=== PATIENT | female | born 1990 | race Two or more races ===

== ENCOUNTER 2018-09-26 11:05 | Emergency (ER) | payer OTHER ==
[2018-09-26] MEDS ORDERED: TETRACAINE HCL 0.5% OPH SOLN 4 ML OD ONE (14:16)
--- NOTE | 2018-09-26 15:18 | ER Document Report ---
HPI - HPI Patient complains to provider of: right eye FB sensation Time Seen by Provider: 09/26/18 14:16 Pain Level: 3 Context: Patient is a 28-year-old female presents to the emergency department with a foreign body sensation of her right eye. Patient states she has had it for about 1.5 weeks. [facility] her she had to come to the emergency room because they were unable to assess her right eye. Patient denies any eye discharge. Patient denies any injury or reason to have a foreign body in her right eye. Patient denies wearing glasses or contact lenses. Patient cannot recall the last time she was at the eye doctor. Past medical history: Asthma Medications: Albuterol Allergies: None - EENT EENT: REPORTS: Eye problems Past Medical History - General Information source: Patient - Social History Smoking Status: Unknown if Ever Smoked Family History: Reviewed & Not Pertinent Patient has suicidal ideation: No Patient has homicidal ideation: No Renal/ Medical History: Denies: Hx Peritoneal Dialysis Vertical Provider Document - CONSTITUTIONAL Agree With Documented VS: Yes Notes: GENERAL: Alert, interacts well. No acute distress. HEAD: Normocephalic, atraumatic. EYES: Pupils equal, round, and reactive to light. Extraocular movements intact. Conjunctivae noninjected. No active discharge, no proptosis, no eyelid erythema or swelling noted ENT: Oral mucosa moist, tongue midline. NECK: Full range of motion. Supple. Trachea midline. LUNGS: Clear to auscultation bilaterally, no wheezes, rales, or rhonchi. No respiratory distress. HEART: Regular rate and rhythm. No murmur ABDOMEN: Soft, non-tender. Non-distended. Bowel sounds present in all 4 quadrants. EXTREMITIES: Moves all 4 extremities spontaneously. No edema, normal radial and dorsalis pedis pulses bilaterally. No cyanosis. BACK: no cervical, thoracic, lumbar midline tenderness. No saddle anesthesia, normal distal neurovascular exam. NEUROLOGICAL: Alert and oriented x3. Normal speech. cranial nerves II through XII grossly intact PSYCH: Normal affect, normal mood. SKIN: Warm, dry, normal turgor. No rashes or lesions noted. - INFECTION CONTROL TRAVEL OUTSIDE OF THE [place] IN LAST 30 DAYS: No Course - Re-evaluation Re-evalutation: 09/26/18 15:25 Tetracaine applied to right eye. Right eye was then fluorescein stained. Corneal abrasion noted 3:00 next to the iris. 1 mm in size. Discussed antibiotic use with patient and need to follow-up with ophthalmology. Return precautions discussed. - Vital Signs Vital signs: Temp Pulse Resp BP Pulse Ox 98.9 F 111 H 18 137/69 H 96 09/26/18 11:08 09/26/18 11:08 09/26/18 11:08 09/26/18 11:08 09/26/18 11:08 Discharge - Discharge Clinical Impression: Corneal abrasion Qualifiers: Encounter type: initial encounter Laterality: right Qualified Code(s): S05.01XA - Injury of conjunctiva and corneal abrasion without foreign body, right eye, initial encounter Condition: Stable Disposition: HOME, SELF-CARE Instructions: Corneal Abrasion ([facility]), Eyedrop Use ([facility]) Additional Instructions: The medication you were given in the emergency room is to be used 1-2 drops 4 times a day for the next 5-7 days. Also as we discussed you need to follow-up with ophthalmology. Referrals: LINDSAY NOGUEIRA DO [ACTIVE STAFF] - Follow up as needed
[2018-09-26] MEDS ORDERED: POLYMYXIN B SULFATE/TMP OPH SOLN (10 ML/ER DISP) OD ONE (15:21)
[2018-09-26 15:30] VITALS: BP 121/87
== END 2018-09-26 15:34 | disposition home or self-care (01) ==
LOC: ER 11:05
DX: S05.01XA Injury of conjunctiva and corneal abrasion without foreign body, right eye, initial encounter (principal); X58.XXXA Exposure to other specified factors, initial encounter; J45.909 Unspecified asthma, uncomplicated; Z79.899 Other long term (current) drug therapy
CPT/HCPCS: 99283; J3490

== ENCOUNTER 2019-03-13 21:15 | Emergency (ER) | payer OTHER ==
[2019-03-14] MEDS ORDERED: RINGERS SOLUTION,LACTATED 1,000 ML IV ONE (00:12)
[2019-03-14] MEDS ORDERED: MORPHINE SULFATE 10 MG/ML INJ IV ONE (00:12)
[2019-03-14] MEDS ORDERED: FAMOTIDINE INJ/PF 20 MG/2 ML SDV IV ONE (00:12)
[2019-03-14] MEDS ORDERED: ONDANSETRON HCL INJ/PF 4 MG/2 ML SDV IV ONE (00:12)
--- NOTE | 2019-03-14 00:14 | ER Document Report ---
ED General - General Chief Complaint: Fever Stated Complaint: FEVER Time Seen by Provider: 03/13/19 23:54 Primary Care Provider: IAN VERGARA NP [Primary Care Provider] - Follow up as needed Mode of Arrival: Ambulatory Information source: Patient Notes: 32-year-old female with no significant past medical history presents with complaint of nausea, vomiting, diarrhea and abdominal pain that started this morning. Patient states that she awoke this morning with body aches, headache and immediately began vomiting. She states she has had over 6-7 episodes of nonbloody nonbilious emesis. Patient also reports numerous episodes of diarrhea which she also describes as nonbloody. She denies any black stools. She denies sick contacts. Abdominal pain is described as cramping, generally located. Last menstrual period was 1 week ago. She denies dysuria, hematuria, flank pain, vaginal discharge. Patient does report starting terbinafine yesterday for a nail fungus. TRAVEL OUTSIDE OF THE [place] IN LAST 30 DAYS: No - HPI Onset: This morning Onset/Duration: Gradual, Persistent Quality of pain: Achy, Burning, Cramping Severity: Mild Associated symptoms: Body/muscle aches, Diarrhea, Nausea, Vomiting. denies: Fever, Shortness of breath Exacerbated by: Denies Relieved by: Denies Similar symptoms previously: No Recently seen / treated by doctor: No - Related Data Allergies/Adverse Reactions: No Known Allergies Allergy (Unverified 09/26/18 11:08) Past Medical History - General Information source: Patient - Social History Smoking Status: Never Smoker Frequency of alcohol use: None Drug Abuse: None Lives with: Family Family History: Reviewed & Not Pertinent Patient has suicidal ideation: No Patient has homicidal ideation: No - Medical History Medical History: Negative Renal/ Medical History: Denies: Hx Peritoneal Dialysis Review of Systems - Review of Systems Notes: REVIEW OF SYSTEMS: CONSTITUTIONAL : Denies fever, chills, or sweats. Denies recent illness. Denies weight loss, recent hospitalizations. EENT: Denies visual changes, eye pain. Denies sore throat, oral lesions, difficulty swallowing. CARDIOVASCULAR: Denies chest pain. Denies palpitations. Denies lower extremity edema. RESPIRATORY: Denies cough. Denies shortness of breath, wheezing. GASTROINTESTINAL: Denies abdominal distention. + nausea, vomiting, diarrhea. Denies blood in vomitus, stools, or per rectum. Denies black, tarry stools. Denies constipation. GENITOURINARY: Denies difficulty urinating, painful urination, frequency, blood in urine, or vaginal discharge. MUSCULOSKELETAL: Denies back or neck pain or stiffness. Denies joint pain or swelling. SKIN: Denies rash, lesions or sores. HEMATOLOGIC : Denies easy bruising or bleeding. LYMPHATIC: Denies swollen glands. NEUROLOGICAL: Denies confusion or altered mental status. Denies loss of consciousness. Denies dizziness or lightheadedness. Denies headache. Denies weakness or paralysis. Denies problems difficulty with ambulation, slurred speech. Denies sensory loss, numbness, or tingling. Denies seizures. PSYCHIATRIC: Denies anxiety or stress. Denies depression, suicidal ideation, or homicidal ideation. Denies visual or auditory hallucinations. Physical Exam - Vital signs Vitals: Temp Pulse Resp BP Pulse Ox 99.1 F 103 H 20 129/70 H 97 03/13/19 22:09 03/13/19 22:09 03/13/19 22:09 03/13/19 22:09 03/13/19 22:09 Interpretation: Tachycardic - Notes Notes: PHYSICAL EXAMINATION: GENERAL: Well-appearing, well-nourished and in no acute distress. HEAD: Atraumatic, normocephalic. EYES: Pupils equal round and reactive to light, extraocular movements intact, conjunctiva are normal. ENT: Nares patent, oropharynx clear without exudates. Moist mucous membranes. NECK: Normal range of motion, supple without lymphadenopathy LUNGS: Breath sounds clear to auscultation bilaterally and equal. No wheezes rales or rhonchi. HEART: Tachycardic rhythm without murmurs ABDOMEN: Soft, n generalized abdominal tenderness nondistended abdomen. No guarding, no rebound. No masses appreciated. Female : deferred Musculoskeletal: Normal range of motion, no pitting or edema. No cyanosis. NEUROLOGICAL: Cranial nerves grossly intact. Normal speech, normal gait. Normal sensory, motor exams PSYCH: Normal mood, normal affect. SKIN: Warm, Dry, normal turgor, no rashes or lesions noted. Course - Re-evaluation Re-evalutation: Laboratory 03/14/19 03/14/19 00:12 00:12 Sodium 142.3 Potassium 4.4 Chloride 105 Carbon Dioxide 25 Anion Gap 12 BUN 9 Creatinine 0.77 Est GFR ( Amer) > 60 Est GFR (Non-Af Amer) > 60 Glucose 100 Calcium 9.3 Urine Color YELLOW Urine Appearance CLEAR Urine pH 5.0 Ur Specific [place] 1.019 Urine Protein NEGATIVE Urine Glucose (UA) NEGATIVE Urine Ketones NEGATIVE Urine Blood SMALL H Urine Nitrite NEGATIVE Urine Bilirubin NEGATIVE Urine Urobilinogen NEGATIVE Ur Leukocyte Esterase NEGATIVE Urine WBC (Auto) 0 Urine RBC (Auto) 0 Squamous Epi Cells Auto 3 Urine Mucus (Auto) RARE Urine Ascorbic Acid NEGATIVE Urine HCG, Qual NEGATIVE Temp Pulse Resp BP Pulse Ox 99.1 F 103 H 20 129/70 H 97 03/13/19 22:09 03/13/19 22:09 03/13/19 22:09 03/13/19 22:09 03/13/19 22:09 03/14/19 01:40 On reevaluation patient reports resolution of her nausea, vomiting and abdominal cramping. Presentation of an overall well-appearing patient in no acute distress with complaints of nausea, vomiting, diarrhea. This is consistent with likely viral gastroenteritis. Patient has no abdominal tenderness on exam and specifically no tenderness in the RLQ, LLQ, RUQ. Overall well hydrated on exam. Able to tolerate oral intake here in the emergency department. Low clinical geovanna picion for any acute life-threatening etiology based on exam and history including acute cholecystitis, SBO, appendicitis, nephrolithiasis, or pylonephritis. CMP without evidence of acute hepatitis or significant dehydration. Will plan for discharge at this time with return precautions and followup recommendations. - Vital Signs Vital signs: Temp Pulse Resp BP Pulse Ox 99.0 F 82 20 124/76 100 03/14/19 01:56 03/14/19 01:56 03/13/19 22:09 03/14/19 01:33 03/14/19 01:33 - Laboratory Result Diagrams: 03/14/19 00:12 Laboratory results interpreted by me: 03/14/19 00:12 Urine Blood SMALL H Discharge - Discharge Clinical Impression: Nausea vomiting and diarrhea, Abdominal cramping Condition: Fair Disposition: HOME, SELF-CARE Instructions: Abdominal Pain ([facility]), Diarrhea, Nonspecific ([facility]), Intravenous ( IV) Fluids ([facility]), Vomiting ([facility]) Additional Instructions: Your symptoms are likely due to a viral illness and should resolve in the next several days. You can take [id number] loperamide also known as Imodium as needed for diarrhea per box instructions. Continue to stay hydrated with plenty of solution such as Gatorade or Pedialyte. You are being prescribed Zofran to take as needed for nausea and vomiting. Please return if you develop severe abdominal pain, pass out, become unable to tolerate any oral fluids for 12 more hours, or any other symptoms that are concerning to you. Prescriptions: Dicyclomine HCl [Bentyl 20 mg Tablet] 20 mg PO QID #20 tablet Famotidine [Pepcid 40 mg Tablet] 40 mg PO DAILY #7 tablet Ondansetron [Zofran Odt 4 mg Tablet] 1 - 2 tab PO Q4H PRN #15 tab.rapdis PRN Reason: For Nausea/Vomiting Referrals: IAN VERGARA, CLINICAL STUDY MANAGER [Primary Care Provider] - Follow up as needed
[2019-03-14 00:46] LABS: ANION GAP 12 (5-19); BLOOD UREA NITROGEN 9 mg/dL (7-20); CALCIUM 9.3 mg/dL (8.4-10.2); CARBON DIOXIDE 25 mmol/L (22-30); CHLORIDE 105 mmol/L (98-107); GLUCOSE 100 mg/dL (75-110); POTASSIUM 4.4 mmol/L (3.6-5.0); SODIUM 142.3 mmol/L (137-145)
[2019-03-14 00:52] LABS: APPEARANCE,URINE CLEAR; BILIRUBIN,URINE NEGATIVE (NEGATIVE); COLOR,URINE YELLOW; GLUCOSE, URINE NEGATIVE (NEGATIVE); KETONES,URINE NEGATIVE (NEGATIVE); LEUKOCYTE ESTERASE,URINE NEGATIVE (NEGATIVE); NITRITE,URINE NEGATIVE (NEGATIVE); PROTEIN,URINE NEGATIVE (NEGATIVE); URINE SPECIFIC GRAVITY 1.019; UROBILINOGEN,URINE NEGATIVE mg/dL (<2.0)
[2019-03-14] MEDS ORDERED: ONDANSETRON ODT 4 MG TAB (6 TAB/ER DISP) PO PRN (01:41)
[2019-03-14 01:47] VITALS: BP 124/76
== END 2019-03-14 01:57 | disposition home or self-care (01) ==
LOC: ER 21:15
DX: R11.2 Nausea with vomiting, unspecified (principal); R19.7 Diarrhea, unspecified; R10.9 Unspecified abdominal pain; R50.9 Fever, unspecified; M79.10 Myalgia, unspecified site
CPT/HCPCS: 99283; 96361; 96374; 96375; 36415; 81025; 80048; 81001; J2270; J2405; J7120; S0028

== ENCOUNTER 2019-07-17 16:20 | Emergency (ER) | payer OTHER ==
--- NOTE | 2019-07-17 17:04 | ER Document Report ---
ED Medical Screen (RME) - General Chief Complaint: Flank Pain Stated Complaint: FLANK PAIN Time Seen by Provider: 07/17/19 17:02 Primary Care Provider: IAN VERGARA NP [Primary Care Provider] - Follow up as needed Mode of Arrival: Ambulatory Information source: Patient Notes: 28-year-old female presented to ED for bilateral flank pain worse on the right less on the left with hematuria. She states the blood just started today the flank pain is been for couple days. Last menstrual cycle was July 03. She states there is definitely no vaginal bleeding at this time. She denies any history of kidney stones he denies any fevers chills. She states she is having urgency and frequent urination but no pain with urination. I have greeted and performed a rapid initial assessment of this patient. A comprehensive ED assessment and evaluation of the patient, analysis of test results and completion of medical decision making process will be conducted by an additional ED providers. I have greeted and performed a rapid initial assessment of this patient. A comprehensive ED assessment and evaluation of the patient, analysis of test results and completion of medical decision making process will be conducted by an additional ED providers. TRAVEL OUTSIDE OF THE [place] IN LAST 30 DAYS: No - Related Data Allergies/Adverse Reactions: No Known Allergies Allergy (Unverified 09/26/18 11:08) Past Medical History Renal/ Medical History: Denies: Hx Peritoneal Dialysis Doctor's Discharge - Discharge Referrals: IAN VERGARA NP [Primary Care Provider] - Follow up as needed
[2019-07-17 17:36] LABS: APPEARANCE,URINE SLIGHTLY-CLOUDY; BILIRUBIN,URINE NEGATIVE (NEGATIVE); COLOR,URINE YELLOW; GLUCOSE, URINE NEGATIVE (NEGATIVE); KETONES,URINE TRACE mg/dL (NEGATIVE); LEUKOCYTE ESTERASE,URINE NEGATIVE (NEGATIVE); NITRITE,URINE NEGATIVE (NEGATIVE); PROTEIN,URINE NEGATIVE (NEGATIVE); URINE SPECIFIC GRAVITY 1.003; UROBILINOGEN,URINE NEGATIVE mg/dL (<2.0)
--- NOTE | 2019-07-17 18:58 | RADIOLOGY REPORT (SQ) ---
EXAM DESCRIPTION: U/S RETROPERITON (RENAL/AORTA) COMPLETED DATE/TIME: 07/17/2019 6:02 pm REASON FOR STUDY: flank pain worse on right COMPARISON: None. TECHNIQUE: Dynamic and static grayscale images acquired of the kidneys and bladder and recorded on P ACS. Additional selected color Doppler and spectral images recorded. LIMITATIONS: None. FINDINGS: RIGHT KIDNEY: Normal size, 10.7 cm. Normal echogenicity. No solid or suspicious masses. No hydronephrosis, but the renal pelvis is prominent, measuring 1.8 cm. No calcifications. LEFT KIDNEY: Normal size, 10.3 cm. Normal echogenicity. No solid or suspicious masses. No hydronephr osis. No calcifications. BLADDER: No bladder masses. Ureteral jets are seen bilaterally. OTHER FINDINGS: No other significant finding. IMPRESSION: Prominent right renal pelvis. No true hydronephrosis. Ureteral jets are seen bilateral ly. TECHNICAL DOCUMENTATION: JOB ID: [id number] [employer] All Rights Reserved Reading location - IP/workstation name: [email or web address]
--- NOTE | 2019-07-17 19:04 | ER Document Report ---
HPI - HPI Time Seen by Provider: 07/17/19 17:02 Pain Level: 3 Notes: Patient is an otherwise healthy 28-year-old female presenting to the emergency department with complaints of bilateral flank pain, urinary urgency and blood in her urine over the last 2 days. She denies any nausea, vomiting, diarrhea or fevers. She denies any abnormal vaginal discharge. - REPRODUCTIVE LMP: 07/01/2019 Reproductive: DENIES: : Past Medical History - General Information source: Patient - Social History Smoking Status: Never Smoker Chew tobacco use (# tins/day): No Frequency of alcohol use: None Family History: Reviewed & Not Pertinent Patient has suicidal ideation: No Patient has homicidal ideation: No - Medical History Medical History: Negative Renal/ Medical History: Denies: Hx Peritoneal Dialysis Surgical Hx: Negative - Immunizations Immunizations up to date: Yes Vertical Provider Document - CONSTITUTIONAL Notes: PHYSICAL EXAMINATION: GENERAL: Well-appearing, well-nourished and in no acute distress. HEAD: Atraumatic, normocephalic. EYES: Pupils equal round and reactive to light, extraocular movements intact, conjunctiva are normal. ENT: Nares patent, oropharynx clear without exudates. Moist mucous membranes. NECK: Normal range of motion, supple without lymphadenopathy LUNGS: Breath sounds clear to auscultation bilaterally and equal. No wheezes rales or rhonchi. HEART: Regular rate and rhythm without murmurs ABDOMEN: Soft, nontender, nondistended abdomen. No guarding, no rebound. No masses appreciated. Female : No CVA tenderness. Musculoskeletal: Normal range of motion, no pitting or edema. No cyanosis. NEUROLOGICAL: Cranial nerves grossly intact. Normal speech, normal gait. Normal sensory, motor exams PSYCH: Normal mood, normal affect. SKIN: Warm, Dry, normal turgor, no rashes or lesions noted. - INFECTION CONTROL TRAVEL OUTSIDE OF THE [place] IN LAST 30 DAYS: No Course - Re-evaluation Re-evalutation: Laboratory 07/17/19 17:17 Urine Color YELLOW Urine Appearance SLIGHTLY-CLOUDY Urine pH 6.0 Ur Specific [place] 1.003 Urine Protein NEGATIVE Urine Glucose (UA) NEGATIVE Urine Ketones TRACE H Urine Blood LARGE H Urine Nitrite NEGATIVE Urine Bilirubin NEGATIVE Urine Urobilinogen NEGATIVE Ur Leukocyte Esterase NEGATIVE Urine WBC (Auto) 2 Urine RBC (Auto) 33 Urine Bacteria (Auto) TRACE Squamous Epi Cells Auto 1 Urine Mucus (Auto) RARE Urine Ascorbic Acid NEGATIVE Urine HCG, Qual NEGATIVE Renal Ultrasound 07/17/19 17:04 IMPRESSION: Prominent right renal pelvis. No true hydronephrosis. Ureteral jets are seen bilaterally. - Vital Signs Vital signs: Temp Pulse Resp BP Pulse Ox 98.0 F 92 16 124/71 98 07/17/19 16:55 07/17/19 16:55 07/17/19 16:55 07/17/19 16:55 07/17/19 16:55 - Laboratory Laboratory results interpreted by me: 07/17/19 17:17 Urine Ketones TRACE H Urine Blood LARGE H Discharge - Discharge Clinical Impression: Cystitis Condition: Stable Disposition: HOME, SELF-CARE Additional Instructions: Your urine shows findings consistent with a urinary tract infection. Please take all the antibiotics as directed even if your symptoms have improved. Please follow-up with your primary care physician as needed. Return to emergency room if you develop fever >101F, persistent vomiting, become lethargic, have severe pain in your sides, or any other symptoms that are concerning to you. Prescriptions: Nitrofurantoin/Nitrofuran Mac [Macrobid 100 mg Capsule] 1 tab PO BID #10 capsule Referrals: IAN VERGARA, [place] [NO LOCAL MD] - Follow up as needed
[2019-07-17 19:13] VITALS: BP 125/86
== END 2019-07-17 19:13 | disposition home or self-care (01) ==
LOC: ER 16:20
DX: N30.90 Cystitis, unspecified without hematuria (principal); R10.9 Unspecified abdominal pain; R39.15 Urgency of urination
CPT/HCPCS: 76770; 81001; 81025; 87086; 99284